=== PATIENT | female | born 1965 | race Caucasian/White ===

== ENCOUNTER 2021-08-07 14:18 | Emergency (ER) | payer OTHER ==
[2021-08-07 15:01] LABS: HEMOGLOBIN 16.2 gm/dl (12.3-15.3); RED BLOOD COUNT 5.02 M/UL (4.00-5.10); WHITE BLOOD COUNT 7.9 K/UL (4.5-11.0)
[2021-08-07 15:26] LABS: BUN/CREATININE RATIO 23 (0-10)
[2021-08-07] MEDS ORDERED: CEPHALEXIN500 M1 PO (16:59)
[2021-08-07] MEDS ORDERED: DIFLUCAN150 MG PO (16:59)
== END 2021-08-07 17:09 | disposition home or self-care (01) ==
LOC: ER1 14:18
PROVIDERS: Physician Assistant
DX: N30.01 Acute cystitis with hematuria (principal); F17.210 Nicotine dependence, cigarettes, uncomplicated
CPT/HCPCS: 70450; 71045; 80053; 81001; 83690; 85025; 87077; 87086; 87186; 96374; 99284; J0696